=== PATIENT | male | born 1970 | race African-American/Black ===

== ENCOUNTER 2025-01-10 16:49 | Inpatient (IN) | payer MEDICARE, MEDICAID ==
[~2025-01-10] VITALS: Ht 177.8 cm; Wt 70.1 kg
[~2025-01-10 16:49] MED LIST: AMLO5TAB88 MT; DILT60TA4 PO; FERR-63 PO; METO-539 PO; PANT40TA51 PO; SENN-362 PO; TOPUD PO
[2025-01-10 17:00] VITALS: BP 119/73; PULSE 89; RESP 19; TEMP 36.696
[2025-01-10] MEDS ORDERED: NALOXONE HCL 0.4MG/ML 1ML VIAL IV PRN (18:00)
[2025-01-10] MEDS ORDERED: ONDANSETRON HCL 4MG/2ML INJ IV PRN (18:00)
[2025-01-10] MEDS ORDERED: DIPHENHYDRAMINE 50MG/ML VIAL IV PRN (18:00)
[2025-01-10] MEDS ORDERED: ACETAMINOPHEN 325MG TABLET PO PRN (18:00)
[2025-01-10] MEDS ORDERED: MAGNESIUM/ALUMINUM HYDROXIDE/SIMETHICONE 30ML UDC PO PRN (18:00)
[2025-01-10 20:00] VITALS: BP 156/71; PULSE 89; RESP 18; TEMP 37; O2SAT 100
[2025-01-10] MEDS: PANTOPRAZOLE 40MG DR TABLET PO SCH (21:26)
[2025-01-10] MEDS: SENNOSIDES 8.6MG TABLET PO SCH (21:26)
[2025-01-10] MEDS: METOPROLOL TARTRATE 50MG TABLET PO SCH (21:26)
[2025-01-10] MEDS: DILTIAZEM HCL 60MG TABLET PO SCH (21:27)
[2025-01-10] MEDS: HYDROCODONE/ACETAMINOPHEN 10/325MG TABLET PO PRN (21:28)
[2025-01-10] MEDS: SODIUM CHLORIDE 0.9% 3ML FLUSH IVF SCH (21:28)
[2025-01-11 08:00] VITALS: BP 148/82; PULSE 85; RESP 18; TEMP 36.5; O2SAT 99
[2025-01-11 08:01] LABS: CREATININE 0.8 mg/dL (0.6-1.3); UREA NITROGEN BLOOD 8 mg/dL (9-23)
[2025-01-11 08:03] LABS: ASPARTATE AMINOTRANSFERASE 23 IU/L (<34); BILIRUBIN TOTAL 0.6 mg/dL (0.1-1.0); HEMATOCRIT. 26.5 % (42.0-52.0); HEMOGLOBIN. 8.8 g/dL (14.0-18.0); MEAN PLATELET VOLUME 8.7 fl (7.4-10.4); PLATELET 470 x1000/uL (130-400); PROTEIN TOTAL 6.5 g/dL (6.0-8.3); RED BLOOD CELL COUNT 2.80 mill/uL (4.7-6.1); RED CELL DISTRIBUTION WIDTH 14.1 % (11.6-14.6)
[2025-01-11] MEDS: DOCUSATE SODIUM 100MG CAPSULE PO SCH ×2 (08:46→14:15)
[2025-01-11] MEDS: FERROUS SULFATE 325MG TABLET PO SCH (08:46)
[2025-01-11] MEDS: ASCORBIC ACID 500 MG TABLET PO SCH (08:47)
[2025-01-11 19:45] LABS: LYMPHOCYTES % MANUAL 14.0 % (20.0-50.0); MONOCYTES % MANUAL 9.0 % (2.0-8.0); NEUTROPHILS % MANUAL 77.0 % (45.0-75.0); PLATELET ESTIMATE INCREASED
[2025-01-11 20:00] VITALS: BP 132/60; PULSE 92; RESP 18; TEMP 36.6; O2SAT 100
[2025-01-12 08:00] VITALS: BP 153/72; PULSE 84; RESP 17; TEMP 37.6; O2SAT 100
[2025-01-12 20:00] VITALS: BP 128/67; PULSE 91; RESP 18; TEMP 37.3; O2SAT 97
[2025-01-13 08:00] VITALS: BP 144/83; PULSE 88; RESP 17; TEMP 36.5; O2SAT 100
[2025-01-13 20:00] VITALS: BP 144/80; PULSE 84; RESP 18; TEMP 36.7; O2SAT 99
[2025-01-14 08:00] VITALS: BP 139/73; PULSE 93; RESP 16; TEMP 36.9; O2SAT 98
[2025-01-14 20:00] VITALS: BP 133/78; PULSE 80; RESP 18; TEMP 36.7; O2SAT 98
[2025-01-15 08:00] VITALS: BP 140/74; PULSE 84; RESP 18; TEMP 36.6; O2SAT 99
[2025-01-15 08:00] LABS: BASOPHILS % 0.9 % (0.0-2.0); EOSINOPHILS % 2.2 % (0.0-5.0); HEMATOCRIT. 27.5 % (42.0-52.0); HEMOGLOBIN. 9.2 g/dL (14.0-18.0); LYMPHOCYTES % 16.1 % (20.0-50.0); MEAN PLATELET VOLUME 8.1 fl (7.4-10.4); MONOCYTES % 11.9 % (2.0-8.0); NEUTROPHILS % 68.9 % (40.0-76.0); PLATELET 591 x1000/uL (130-400); RED BLOOD CELL COUNT 2.98 mill/uL (4.7-6.1); RED CELL DISTRIBUTION WIDTH 14.1 % (11.6-14.6)
[2025-01-15 08:14] LABS: CREATININE 1.0 mg/dL (0.6-1.3); UREA NITROGEN BLOOD 16 mg/dL (9-23)
[2025-01-15 20:35] VITALS: BP 135/78; PULSE 77; RESP 18; TEMP 36.4; O2SAT 99
[2025-01-16] MEDS: HYDROCODONE/ACETAMINOPHEN 5/325MG TABLET PO PRN (00:25)
[2025-01-16 08:00] VITALS: BP 144/81; PULSE 88; RESP 17; TEMP 36.7; O2SAT 99
[2025-01-16] MEDS: BISACODYL 5MG TABLET PO PRN (10:23)
[2025-01-16 20:00] VITALS: BP 128/74; PULSE 101; RESP 17; TEMP 36.6; O2SAT 100
[2025-01-17 08:00] VITALS: BP 137/91; PULSE 99; RESP 18; TEMP 36.2; O2SAT 100
[2025-01-17] MEDS: LACTULOSE 20G/30ML UDC PO PRN (14:44)
[2025-01-17 20:00] VITALS: BP 122/76; PULSE 87; RESP 18; TEMP 36.9; O2SAT 100
[2025-01-18 08:00] VITALS: BP 135/85; PULSE 89; RESP 18; TEMP 36.9; O2SAT 99
[2025-01-18 20:00] VITALS: BP 132/78; PULSE 86; RESP 18; TEMP 36.7; O2SAT 100
[2025-01-18] MEDS: FAMOTIDINE 20MG TABLET PO SCH (21:30)
[2025-01-19 20:44] VITALS: PULSE 98; RESP 18; TEMP 36.7
[2025-01-20 05:16] LABS: BASOPHILS % 0.9 % (0.0-2.0); EOSINOPHILS % 2.9 % (0.0-5.0); HEMATOCRIT. 26.4 % (42.0-52.0); HEMOGLOBIN. 8.7 g/dL (14.0-18.0); LYMPHOCYTES % 20.2 % (20.0-50.0); MEAN PLATELET VOLUME 8.2 fl (7.4-10.4); MONOCYTES % 11.3 % (2.0-8.0); NEUTROPHILS % 64.7 % (40.0-76.0); PLATELET 564 x1000/uL (130-400); RED BLOOD CELL COUNT 2.86 mill/uL (4.7-6.1); RED CELL DISTRIBUTION WIDTH 14.1 % (11.6-14.6)
[2025-01-20 08:00] VITALS: BP 130/72; PULSE 98; RESP 18; TEMP 37.3; O2SAT 98
[2025-01-20 20:00] VITALS: BP 143/90; PULSE 87; RESP 18; TEMP 36.3; O2SAT 99
[2025-01-21] MEDS: ACETAMINOPHEN 325MG TABLET PO PRN (00:35)
[2025-01-21 08:00] VITALS: BP 134/81; PULSE 84; RESP 18; TEMP 36.7; O2SAT 99
[2025-01-21] MEDS: HYDROCODONE/ACETAMINOPHEN 5/325MG TABLET PO PRN (10:25)
[2025-01-21 20:00] VITALS: BP 138/78; PULSE 89; RESP 18; TEMP 36.6; O2SAT 98
[2025-01-22 08:00] VITALS: BP 131/79; PULSE 83; RESP 18; TEMP 36.7; O2SAT 99
[2025-01-22] MEDS ORDERED: DILT-26 PO (10:39)
[2025-01-22] MEDS ORDERED: DOCU-138 MT (10:39)
[2025-01-22] MEDS ORDERED: TRAM50TA3 MT (10:39)
[2025-01-22 11:19] VITALS: BP_SYST 149; BP_SYST 156; BP_DIAS 93; BP_DIAS 96; PULSE 71; PULSE 75; RESP 18; TEMP 97.9
[2025-01-22 12:40] VITALS: BP 162/84; PULSE 72
[2025-01-22] MEDS: CLONIDINE 0.1MG TABLET PO PRN (12:49)
== END 2025-01-22 14:15 | disposition home health service (06) | DRG 560 ==
PROVIDERS: ADMIT Psychiatry & Neurology Neurology; ATTEND Internal Medicine
DX: S72.142G Displaced intertrochanteric fracture of left femur, subsequent encounter for closed fracture with delayed healing (principal); F01.53 Vascular dementia, unspecified severity, with mood disturbance; I69.351 Hemiplegia and hemiparesis following cerebral infarction affecting right dominant side; R47.01 Aphasia; D50.9 Iron deficiency anemia, unspecified; E87.6 Hypokalemia; F10.229 Alcohol dependence with intoxication, unspecified; I10 Essential (primary) hypertension; K76.0 Fatty (change of) liver, not elsewhere classified; R00.0 Tachycardia, unspecified; R41.89 Other symptoms and signs involving cognitive functions and awareness; M16.12 Unilateral primary osteoarthritis, left hip; N28.1 Cyst of kidney, acquired; Y90.8 Blood alcohol level of 240 mg/100 ml or more; Z91.81 History of falling
CPT/HCPCS: 36415; 73502; 80048; 80053; 84134; 85025; 92523; 92610; 97110; 97112; 97116; 97162; 97166; 97530; 97535; 97542; A4606